=== PATIENT | female | born 1945 | race Caucasian/White ===

== ENCOUNTER → 2019-02-18 14:06 | Outpatient (CLI) | payer MEDICARE, SELFPAY ==
[2019-02-22 12:07] LABS: Alternaria tenuis <0.10 kU/L (Class 0); Ash, White <0.10 kU/L (Class 0); Aspergillus fumigatus <0.10 kU/L (Class 0); Bermuda Grass <0.10 kU/L (Class 0); Birch <0.10 kU/L (Class 0); Black Walnut <0.10 kU/L (Class 0); Cat Hair / Dander,Stand <0.10 kU/L (Class 0); Cedar, Mountain <0.10 kU/L (Class 0); Cladosporium herbarum <0.10 kU/L (Class 0); Cockroach, American <0.10 kU/L (Class 0); Cottonwood <0.10 kU/L (Class 0); D farinae Mite <0.10 kU/L (Class 0); D pteronyssinus <0.10 kU/L (Class 0); Dog Epithelia <0.10 kU/L (Class 0); Elm, American White <0.10 kU/L (Class 0); Immunoglobulin E 54 IU/mL (6-495); Maple/Box Elder <0.10 kU/L (Class 0); Mulberry, White <0.10 kU/L (Class 0); Oak, White <0.10 kU/L (Class 0); Pecan <0.10 kU/L (Class 0); Penicillium Notatum <0.10 kU/L (Class 0); Pigweed, Rough <0.10 kU/L (Class 0); Ragweed, Short/Common <0.10 kU/L (Class 0); Russian Thistle <0.10 kU/L (Class 0); Sheep Sorrel <0.10 kU/L (Class 0); Sycamore, American <0.10 kU/L (Class 0); Timothy Grass <0.10 kU/L (Class 0)
[2019-02-22 13:33] LABS: Mouse Urine <0.10 kU/L (Class 0)
== END ==
PROVIDERS: Family Provider Family Medicine; PCP Family Medicine; Referring Provider Otolaryngology; Visit Provider Otolaryngology
DX: T78.40XA Allergy, unspecified, initial encounter (principal)
CPT/HCPCS: 36415; 82785; 86003

== ENCOUNTER → 2020-10-20 14:20 | Outpatient (CLI) | payer MEDICARE, SELFPAY ==
--- NOTE | 2020-10-20 14:22 | US_ITS ---
STUDY: SUPERFICIAL ULTRASOUND - LEFT LOWER LEG REASON FOR EXAM: Female, 75 years old. Mass of lower leg TECHNIQUE: A superficial ultrasound was performed with real-time and static omalley-scale imaging. COMPARISON: None. FINDINGS: Imaging of the left lower leg was obtained. The palpable abnormality corresponds to a 4.9 cm x 2.7 cm by 2.5 cm isoechoic/slightly hyperechoic nodular density. This most likely represents a lipoma. US/Ext Non Vasc Limited/Soft Tiss IMPRESSION: The palpable abnormality corresponds to a 4.97 x 2.7 cm x 2.5 cm isoechoic/slightly hyperechoic nodule. This most likely represents a lipoma. Electronically Signed: Rudy Cain MD at 12:13 EDT , Service support ,
== END ==
PROVIDERS: PCP Internal Medicine; Referring Provider Surgery; Visit Provider Surgery
DX: R22.42 Localized swelling, mass and lump, left lower limb (principal)
CPT/HCPCS: 76882

== ENCOUNTER → 2020-12-08 | Outpatient (CLI) | payer MEDICARE, SELFPAY | END | disposition home or self-care (01) | LOC: LABSPEC 14:34 | PROVIDERS: PCP Family Medicine Geriatric Medicine; Visit Provider Family Medicine Geriatric Medicine | DX: N39.0 Urinary tract infection, site not specified (principal) | CPT/HCPCS: 87086; 87088 ==

== ENCOUNTER 2021-08-01 20:00 | Emergency (ER) | payer MEDICARE, SELFPAY ==
[2021-08-01 20:02] VITALS: BP 199/78; PULSE 80; RESP 18; TEMP 36.3; O2SAT 98; BMI 27.9
[2021-08-01] MEDS: HYDROcodone Bitartrate/Apap 5/325 Tablet PO (20:33)
--- NOTE | 2021-08-01 20:34 | RAD_ITS ---
STUDY: X-RAY - UNILATERAL RIBS ( RIGHT ) WITH CHEST REASON FOR EXAM: Female, 76 years old. trauma TECHNIQUE - RIBS: 4 view(s) of the ribs. TECHNIQUE - CHEST: 1 COMPARISON: None. FINDINGS - RIBS: Normal visualized ribs without a demonstrated fracture. FINDINGS - CHEST: The lungs are clear and expanded. There is no demonstrated pleural abnormality. Normal size heart. Normal mediastinum and mariel. Normal visualized pulmonary arteries. Normal visualized aortic arch and descending thoracic aorta. Prior right shoulder surgery. Soft tissues and bony structures are otherwise unremarkable. RAD/Ribs Uni Min 3V w/PA Chest IMPRESSION: RIBS: Normal x-ray examination of the ribs. CHEST: Normal x-ray examination of the chest. Electronically Signed: Mildred Glaser MD at 21:20 EDT Reading Location ID and State: [id number] / Tel , Service support ,
--- NOTE | 2021-08-01 20:49 | EX.ED.DYSGE1 ---
HPI History of Present Illness Chief Complaint: Abd Pain Narrative Narrative: Patient presents with right lower rib pain anteriorly. This is after she fell while she was gardening. She had tripped. She had no loss of consciousness present. The pain has been ongoing for the past few days since she fell. It is worse with movement as well as extending her arm or bending the wrong way. She has no shortness of breath. She has no back pain. Chief complaints is abdominal pain however patient has no abdominal pain nausea vomiting or diarrhea. No other injuries. She is denying a head injury or loss of consciousness. [facility] Medical History HTN (hypertension) Home Medications amlodipine 10 mg tablet tablet PO 10/19/20 [History Last Taken Unknown] hydrochlorothiazide 12.5 mg capsule cap PO 10/19/20 [History Last Taken Unknown] lorazepam 1 mg tablet 1 mg PO DAILY PRN 10/19/20 [History Last Taken Unknown] losartan 100 mg tablet tablet PO 10/19/20 [History Last Taken Unknown] sertraline 100 mg tablet tablet PO 10/19/20 [History Last Taken Unknown] hydrocodone-acetaminophen 1 tab PO QHS PRN 3 Days #10 tab 08/01/21 [Rx Last Taken Unknown] Allergy/AdvReac Type Severity Reaction Status Date / Time lisinopril Allergy Mild Other Verified 08/01/21 20:04 Family History Sister Diabetes Surgical History S/P appendectomy S/P rotator cuff repair Social History Smoking Status: Never smoker alcohol intake: never ROS ROS ED ROS Narrative Past medical history: Reviewed Medications: Reviewed Social history: Noncontributory Review of systems: All systems negative except as indicated General: No fever Eyes: No visual changes ENT: No upper airway congestion, normal voice Neck: No neck pain Cardiovascular: No palpitations, no lightheadedness. Chest wall: Chest wall injury as in HPI Respiratory: No shortness of breath or cough Gastrointestinal: No abdominal pain, nausea vomiting or diarrhea Musculoskeletal: Denies myalgias no difficulty with ambulation Skin: No rash Neurological: No memory loss, confusion or any focal weakness Psych: No recent behavioral changes Hematologic: No easy bleeding or easy bruising EXAM Physical Exam Narrative Exam Narrative: Physical exam Vitals reviewed General: Patient appears relatively comfortable in the bed. HEENT: No facial injury Head: No head injury Eyes: Extraocular movements intact Neck: No C-spine tenderness with full range of motion Heart: Regular rate normal pulses Chest wall: Right lower rib tenderness to palpation no obvious contusions or step-offs. Lungs clear lungs bilaterally with normal inspiration and expiration without tachypnea GI: Abdomen is soft and nontender, I specifically palpated the right upper quadrant and there is no pain. Chavez's is negative. There is no mass no guarding no abdominal wall contusion : Stable pelvis Musculoskeletal: Moves all extremities without any signs of trauma Skin: No abrasions or laceration Neurological: Patient is alert and oriented with no focal deficits Const Vital Signs: 08/01/21 20:02 Temperature 97.4 F L Temperature Source Temporal Pulse Rate 80 Respiratory Rate 18 Blood Pressure 199/78 H Blood Pressure Mean 118 Pulse Ox 98 Oxygen Delivery Method Room Air MDM MDM MDM Narrative Medical decision making narrative: Patient received analgesia, x-ray is unremarkable I will reassure her and discharged home with analgesia. Radiography Diagnostic Testing: Clinical Impression(s) from Imaging Studies Ribs w/Chest X-Ray 08/01/21 20:34 IMPRESSION: RIBS: Normal x-ray examination of the ribs. CHEST: Normal x-ray examination of the chest. Electronically Signed: Mildred Glaser MD at 21:20 EDT Reading Location ID and State: [id number] / Tel , Service support , Rib x-ray of the right interpreted by me does not show any pneumothorax or any rib fracture. Discharge Plan Triage Chief Complaint: Abd Pain ED Provider: James Mahajan Dx/Rx/DC Orders Clinical Impression: Contusion of rib, Fall Instructions: ED Contusion, Rib Prescriptions: New hydrocodone-acetaminophen 5-325 mg tablet 1 tab PO QHS PRN (Reason: pain) 3 Days Qty: 10 RF: 0 No Action losartan 100 mg tablet PO RF: 0 hydrochlorothiazide 12.5 mg capsule PO RF: 0 amlodipine 10 mg tablet PO RF: 0 sertraline 100 mg tablet PO RF: 0 lorazepam 1 mg tablet 1 mg PO DAILY PRNRF: 0 Primary Care Provider: Anny Hung Referrals: Anny Hung MD [Primary Care Provider] - Disposition Disposition: Home, Self Care
== END 2021-08-01 21:38 | disposition home or self-care (01) ==
PROVIDERS: Emergency Provider Emergency Medicine; PCP Internal Medicine; Visit Provider Emergency Medicine
DX: S20.211A Contusion of right front wall of thorax, initial encounter (principal); W01.0XXA Fall on same level from slipping, tripping and stumbling without subsequent striking against object, initial encounter; Y93.H2 Activity, gardening and landscaping; Y99.8 Other external cause status; I10 Essential (primary) hypertension; Z79.899 Other long term (current) drug therapy
CPT/HCPCS: 71101; 99284

== ENCOUNTER → 2021-12-06 | Outpatient (CLI) | payer MEDICARE, SELFPAY ==
--- NOTE | 2021-12-06 12:56 | CT_ITS ---
STUDY: CT SOFT TISSUE NECK WITH CONTRAST REASON FOR EXAM: Female, 76 years old. Six-month history of L SUBMANDIBULAR PAIN RADIATION DOSAGE (If Supplied By Facility): CTDIvol = ( 14.68 ) mGy, DLP = ( 381.33 ) mGycm TECHNIQUE: The patient was scanned in a multi-detector CT scanner. High resolution transaxial imaging was performed following intravenous administration of IV 100mL Isovue-300. Sagittal and coronal images were reconstructed. Individualized dose optimization techniques were used for this CT. COMPARISON: None. FINDINGS: Normal bilateral parotid glands. 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 Normal bilateral parapharyngeal spaces. Normal bilateral carotid spaces. Normal bilateral sublingual and submandibular glands and spaces. Normal visualized nasopharynx. Normal retropharyngeal space. Normal perivertebral space. Normal visualized bilateral faucial tonsils. The visualized tongue, tongue base and oropharynx are normal. The visualized cervical lymph nodes (levels I-) are within normal size limits, and maintain normal morphology. There is no demonstrated solid or cystic mass lesion. There is no abnormal contrast enhancement. Normal epiglottis, bilateral vallecula and hypopharynx. The pre-epiglottic and paraglottic adipose spaces are normal. Normal visualized bilateral piriform sinuses, aryepiglottic folds, vocal cords, and arytenoid-cricoid articulations. Normal subglottic trachea. Normal bilateral lobes of the thyroid gland. Normal visualized pulmonary apices. Normal visualized paranasal sinuses. There is degenerative changes of the cervical spine. Loss of the normal cervical lordosis. CT/Soft Tissue Neck WITH Contrast IMPRESSION: No acute abnormality is seen. Electronically Signed: Rudy Cain MD at 15:10 EDT ,
[2021-12-06 13:21] LABS: CREATININE FINGERSTICK < 0.9 mg/dL (0.55-1.02); EGFR FINGERSTICK > 60.0000 mL/min (>60)
== END | disposition home or self-care (01) ==
LOC: CT 12:48
PROVIDERS: PCP Internal Medicine; Visit Provider Otolaryngology
DX: R68.84 Jaw pain (principal)
CPT/HCPCS: 70491; Q9967

== ENCOUNTER → 2022-10-12 | Outpatient (CLI) | payer MEDICARE, SELFPAY ==
--- NOTE | 2022-10-12 15:05 | CT_ITS ---
CT LEFT LOWER EXTREMITY WITH 3-D IMAGING CLINICAL INDICATION: LEFT lower leg mass TECHNIQUE: Axial CT images of the LEFT lower extremity was performed IV contrast material. Coronal and sagittal reformats were provided. RADIATION DOSAGE (If Supplied By Facility): CTDIvol = ( 19.84 ) mGy, DLP = ( 1783.82 ) mGycm COMPARISON: FINDINGS: Bones: Osseous structures are normal without evidence of fracture or dislocation. No lytic or blastic osseous masses. Soft Tissues: Macroscopic fat-containing lesion along the anterior/medial aspect of the mid tibia measuring 6.6 x 4.0 x 3.2 cm. There is a subtle groundglass type opacity within this fat-containing lesion. While this may represent inflammatory change, would also also consider the possibility of a low-grade liposarcoma. The deep soft tissue structures are otherwise unremarkable. The superficial soft tissues are otherwise unremarkable without evidence of edema, hematoma, or foreign body. CT/Extremity Lower WITH Contrast IMPRESSION: Macroscopic fat-containing lesion along the anterior/medial aspect of the mid tibia measuring 6.6 x 4.0 x 3.2 cm. There is a subtle groundglass type opacity within this fat-containing lesion. While this may represent inflammatory change, would also also consider the possibility of a low-grade liposarcoma. T Electronically Signed: Golden Grimes MD at 22:15 EDT ,
[2022-10-12 15:32] LABS: CREATININE FINGERSTICK 1.1 mg/dL (0.55-1.02)
== END | disposition home or self-care (01) ==
LOC: CT 15:03
PROVIDERS: PCP Internal Medicine; Referring Provider Surgery; Visit Provider Surgery
DX: R22.42 Localized swelling, mass and lump, left lower limb (principal)
CPT/HCPCS: 73701; Q9967

== ENCOUNTER → 2022-11-08 | Outpatient (CLI) | payer MEDICARE, SELFPAY ==
--- NOTE | 2022-11-08 14:00 | LES_PTH ---
PATIENT: TERI RODRIGUEZ LOC: [facility] U#:[id number] AGE/SX: 77/F ROOM: RE11/08/[address]: Dr. Surendra Diaz MD : 1945 BED: DIS: 11/08/2022 SPEC #: [id number] RECD: 11/09/22 09:48 STATUS: RODRICK RECelia #: [id number] [place]: 11/08/22 14:[address]: Surendra Diaz DEPT: SURGICAL PATHOLOGY RECD BY: Seble Galicia ENTERED: 11/10/22 09:49 SP TYPE: Lesion OTHR DR: Dr. Anny Hung MD Tissues: Skin of leg, NOS Procedures: Surgery Specimen Level IV HEADER OPERATION: Biopsy mass left lower leg PRE-OP DIAGNOSIS: Mass left lower leg TISSUE SUBMITTED: Left lower leg mass tissue MICROSCOPIC DIAGNOSIS Left lower leg mass, core biopsy: A fragment of mature adipose tissue with focal fat necrosis and focal chronic inflammation. Negative for malignancy. See comment. SJ:rosendo 11/10/2022 COMMENT The findings favor lipoma. Correlation with clinical, radiologic findings and appropriate follow up are necessary. Case has been reviewed in consultation with Dr. Gonzalez who concurs with the above diagnosis. IDC:AM MICROSCOPIC DESCRIPTION Slides are reviewed. GROSS DESCRIPTION Received in fixative is one container labeled with the patient's name and designated left lower leg mass tissue. The specimen consists of an elongated piece of ricardo soft tissue measuring 1.3 cm in length and 0.1 cm in diameter. The entire specimen is submitted in one cassette. / SHARITA:rosendo 11/09/2022 TC:1 CPT: 30392
== END | disposition home or self-care (01) ==
LOC: LABSPEC 11-10 09:47
PROVIDERS: PCP Internal Medicine; Visit Provider Surgery
DX: M79.89 Other specified soft tissue disorders (principal)
CPT/HCPCS: 88305

== ENCOUNTER → 2024-05-31 | Outpatient (CLI) | payer MEDICARE, SELFPAY ==
--- NOTE | 2024-05-31 13:08 | CDU_ITS ---
Reason For Study Reason For Study: Amaurosis fugax Rt. Velocities/BP Lt. Velocities/BP Prox CCA 76.8/11.6 cm/sec. Prox CCA 82.8/11.3 cm/sec. Mid CCA 85.3/11.6 cm/sec. Mid CCA 88.3/13.5 cm/sec. Dist CCA 74/11.6 cm/sec. Dist CCA 81.7/10.2 cm/sec. Prox ICA 82.5/9.7 cm/sec. Prox ICA 74.4/12.5 cm/sec. Mid ICA 74/14.5 cm/sec. Mid ICA 68.3/16 cm/sec. Dist ICA 82.5/13.5 cm/sec. Dist ICA 67.4/11.6 cm/sec. Rt. ICA/CCA = 0.97. Lt. ICA/CCA = 0.84. Prox ECA 92.9/7.8 cm/sec. Prox ECA 77.9/5.5 cm/sec. Rt. Vert. 37.9/4.7 cm/sec. Lt. Vert. 47.2/7.3 cm/sec. Right Extracranial There is homogeneous, smooth atherosclerotic plaque noted in the right common carotid artery. There is heterogeneous, irregular atherosclerotic plaque noted in the right internal carotid artery. There is intimal thickening but no significant atherosclerotic plaque noted in the right external carotid artery. Antegrade flow is noted in the right vertebral artery. Left Extracranial There is homogeneous, smooth atherosclerotic plaque noted in the left common carotid artery. There is homogeneous, smooth atherosclerotic plaque noted in the left internal carotid artery. There is intimal thickening but no significant atherosclerotic plaque noted in the left external carotid artery. Antegrade flow is noted in the left vertebral artery. Procedure Carotid Duplex 58409. This is a Carotid Duplex examination using B-mode, color flow and specral Doppler. Exam performed in department. VL/Carotid Duplex Ultrasound Interpretation Summary Mild (<50%) stenosis right extracranial internal carotid. Mild (<50%) stenosis left extracranial internal carotid. Flow within the vertebral arteries is antegrade bilaterally. Ordering Physician: Elmo Sam Referring Physician: Anny Hung Performed By: Omaira Harper RVT
== END | disposition home or self-care (01) ==
LOC: CVS 13:05
PROVIDERS: PCP Internal Medicine; Referring Provider Ophthalmology; Visit Provider Ophthalmology
DX: G45.3 Amaurosis fugax (principal)
CPT/HCPCS: 93880